=== PATIENT | female | born 1995 | race Caucasian/White ===

== ENCOUNTER 2017-07-07 03:36 | Emergency (ER) | payer BC, OTHER ==
[2017-07-07] MEDS ORDERED: NS 0.9% 1000 ML* 1,000 ML IV ONE ×2 (04:20→04:21)
[2017-07-07] MEDS ORDERED: DICYCLOMINE HCL* 20 MG/2 ML VIAL IM ONE (04:22)
[2017-07-07] MEDS ORDERED: Pantoprazole IV* 40 MG IV ONE ×2 (04:22→08:11)
[2017-07-07 04:57] LABS: ABS Basophils 0 10^3/ul (0-0.2); ABS Eosinophils 0 10^3/ul (0-0.6); ABS Lymphocytes 1.2 10^3/ul (1.0-4.8); ABS Monocytes 0.6 10^3/ul (0-0.8); ABS Neutrophils 6.4 10^3/ul (1.5-7.7); ABS Nucleated RBC 0 10^3/ul; Eosinophil % 0.3 % (0-6); Hematocrit 38 % (35-47); Hemoglobin 12.9 g/dl (12.0-16.0); Mean Corpuscular HGB Conc 34 g/dl (31-36); Mean Corpuscular Hemoglobin 29 pg (27-31); Mean Corpuscular Volume 84 fL (80-97); Mean Platelet Volume 11 um3 (7.4-10.4); Nucleated Red Blood Cells % 0; Platelet Count 217 10^3/ul (150-450); Red Blood Count 4.51 10^6/ul (4.0-5.4); Red Cell Distribution Width 13 % (10.5-15); White Blood Count 8.3 10^3/ul (3.5-10.8)
[2017-07-07 04:59] LABS: Urine Appearance Clear; Urine Blood Negative (Negative); Urine Color Straw; Urine Ketones Negative (Negative); Urine Protein Negative (Negative); Urine Specific Gravity 1.003 (1.010-1.030); Urine Urobilinogen Negative (Negative)
[2017-07-07 05:13] LABS: EGFR Non-African American 92.9 (>60)
--- NOTE | 2017-07-07 07:04 | ED ---
Nate Nassar Rebecca, scribed for Hector Quintanilla MD on 07/07/17 at 0415 . Complex/Multi-Sys Presentation - HPI Summary HPI Summary: Pt is a 21 y/o F who presents to ED c/o abdominal pain. Pain has been present for "a while," worsening 2 days ago. Pain is in the epigastric region with radiation down the R side of the abdomen and is currently moderate, ranked 7/ 10. Sx aggravated and alleviated by nothing. Additionally c/o subjective fever earlier tonight for which she took Advil. Denies V/D. LNMP about 6 weeks ago though the pt does not believe she is . No PSHx. - History Of Current Complaint Chief Complaint: EDFluSymptoms Time Seen by Provider: 07/07/17 03:51 Hx Obtained From: Patient Onset/Duration: Gradual Onset, Still Present Severity Currently: Severe Severity Initially: Mild Location: Pain At: - Epigastric Aggravating Factor(s): Nothing Alleviating Factor(s): Nothing Associated Signs And Symptoms: Positive: Abdominal Pain, Fever. Negative: Vomiting, Diarrhea - Allergies/Home Medications Allergies/Adverse Reactions: Allergies Allergy/AdvReac Type Severity Reaction Status Date / Time Penicillins Allergy Severe Anaphylatic Verified 07/07/17 03:43 Shock PMH/Surg Hx/FS Hx/Imm Hx Endocrine/Hematology History: Denies: Hx Diabetes, Hx Thyroid Disease Cardiovascular History: Denies: Hx Congestive Heart Failure, Hx Deep Vein Thrombosis, Hx Hypertension , Hx Myocardial Infarction, Hx Pacemaker/ICD Respiratory History: Reports: Hx Asthma Denies: Hx Chronic Obstructive Pulmonary Disease (COPD), Hx Lung Cancer GI History: Denies: Hx Ulcer History: Denies: Hx Renal Disease Neurological History: Denies: Hx Dementia, Hx Migraine, Hx Seizures, Hx Transient Ischemic Attacks (TIA), Other Neuro Impairments/Disorders Psychiatric History: Reports: Hx Anxiety Denies: Hx Eating Disorder, Hx of Violent Episodes Against Others Infectious Disease History: No Infectious Disease History: Denies: Hx Clostridium Difficile, Hx Hepatitis, Hx Human Immunodeficiency Virus (HIV), Hx of Known/Suspected MRSA, Hx Shingles, Hx Tuberculosis, Hx Known/ Suspected VRE, Hx Known/Suspected VRSA, History Other Infectious Disease, Traveled Outside the [place] in Last 30 Days - Family History Known Family History: Positive: Cardiac Disease, Hypertension - Social History Alcohol Use: Occasionally Substance Use Type: Reports: None Smoking Status (MU): Never Smoked Tobacco Review of Systems Positive: Fever Positive: Abdominal Pain. Negative: Vomiting, Diarrhea All Other Systems Reviewed And Are Negative: Yes Physical Exam - Summary Physical Exam Summary: ~ VITAL SIGNS: Reviewed. GENERAL: ~Patient is a well-developed and nourished female who is lying comfortable in the stretcher. Patient is not in any acute respiratory distress. HEAD AND FACE: No signs of trauma. No ecchymosis, hematomas or skull depressions. No sinus tenderness. EYES: PERRLA, EOMI x 2, No injected conjunctiva, no nystagmus. EARS: Hearing grossly intact. Ear canals and tympanic membranes are within normal limits. MOUTH: Oropharynx within normal limits. NECK: Supple, trachea is midline, no adenopathy, no JVD, no carotid bruit, no c- spine tenderness, neck with full ROM. CHEST: Symmetric, no tenderness at palpation LUNGS: Clear to auscultation bilaterally. No wheezing or crackles. CVS: Regular rate and rhythm, S1 and S2 present, no murmurs or gallops appreciated. ABDOMEN: Soft, non-tender. No signs of distention. No rebound no guarding, and no masses palpated. Bowel sounds are normal. EXTREMITIES: FROM in all major joints, no edema, no cyanosis or clubbing. NEURO: Alert and oriented x 3. No acute neurological deficits. Speech is normal and follows commands. SKIN: Dry and warm Triage Information Reviewed: Yes Vital Signs On Initial Exam: Initial Vitals Temp Pulse Resp BP Pulse Ox 98.4 F 91 16 143/71 99 07/07/17 03:39 07/07/17 03:39 07/07/17 03:39 07/07/17 03:39 07/07/17 03:39 Vital Signs Reviewed: Yes Diagnostics - Vital Signs Vital Signs Temp Pulse Resp BP Pulse Ox 07/07/17 03:39 98.4 F 91 16 143/71 99 - Laboratory Result Diagrams: 07/07/17 04:45 07/07/17 04:45 Lab Statement: Any lab studies that have been ordered have been reviewed, and results considered in the medical decision making process. Complex Multi-Symp Course/Dx Assessment/Plan: Pt is a 21 y/o F who presents to ED c/o abdominal pain. Pain has been present for "a while," worsening 2 days ago. Pain is in the epigastric region with radiation down the R side of the abdomen and is currently moderate, ranked 7/10. Additionally c/o subjective fever earlier tonight for which she took Advil. Denies V/D. LNMP about 6 weeks ago though the pt does not believe she is . No PSHx. In the ED course pt received Bentyl, Protonix and fluids. Bloodwork and UA were done. Pt will be signed out to Dr. Hardwick, pending dispo, awaiting CT Abd/Pel. Allergy noted. - Diagnoses Provider Diagnoses: Abdominal pain Discharge - Discharge Plan Condition: Stable Disposition: OTHER Discharge Disposition Comment: Pt will be signed out to Dr. Hardwick, pending dispo, awaiting CT Abd/Pel Referrals: No Primary Care Phys,NOPCP [Primary Care Provider] - The documentation as recorded by the Nate vela Rebecca accurately reflects the service I personally performed and the decisions made by me, Hector Quintanilla MD.
[2017-07-07] MEDS ORDERED: Iohexol 300* (CONTRAST) 10 ML SDV IV ONE (07:11)
--- NOTE | 2017-07-07 08:06 | RAD ---
INDICATION: Abdominal pain COMPARISON: None TECHNIQUE: Axial source images were obtained from the hemidiaphragms to the symphysis pubis following administration of oral and intravenous contrast. 100 mL Omnipaque 300 was utilized. Coronal and sagittal reconstructed images were acquired. Lung bases: The lung bases are clear. Liver: The liver is normal in size. There are no masses. There is no ductal dilatation. Gallbladder: There are no calcified gallstones. There is no evidence of wall thickening or pericholecystic fluid. Spleen: The spleen is normal in size. There are no masses. Pancreas: There is no focal pancreatic mass or ductal dilatation. Adrenal glands: There is no evidence of adrenal mass. Kidneys: The kidneys are normal in size and position. There are prompt nephrograms and there is prompt excretion bilaterally. There are no renal parenchymal masses. There is no evidence of nephrolithiasis. Adenopathy: There is no evidence of adenopathy by size criteria. Fluid collections: There are no free or localized fluid collections. Vessels:There are no significant atherosclerotic changes involving the aorta. There is no focal aneurysm. The iliac vessels are normal in caliber. The IVC appears normal. GI tract: The stomach and small bowel to the level of the terminal ileum appear normal. There is mural thickening of the terminal ileum. Minor mural thickening of the cecal tip. The remainder the colon to include the appendix is normal. Pelvic organs: The uterus and adnexa appear normal Bladder: There are no bladder masses. Abdominal and pelvic soft tissues: The extraperitoneal abdominal and pelvic soft tissues appear normal.. Osseous structures: There are no acute osseous findings. Other: None IMPRESSION: MURAL THICKENING OF THE TERMINAL ILEUM. CONSIDER ILEITIS/CROHN'S DISEASE
--- NOTE | 2017-07-07 09:12 | ED ---
IMargarito Jennifer, scribed for Dano Hardwick MD on 07/07/17 at 0808 . Progress - Progress Note Progress Note: The patient is a sign out from Dr. Quintanilla pending CT Abd/Pel. CT Abd/Pel. Interpreted by a radiologist. IMPRESSION: MURAL THICKENING OF THE TERMINAL ILEUM. CONSIDER ILEITIS/CROHN'S DISEASE. Dr. Hardwick has reviewed this report. Course/Dx - Course Course Of Treatment: DISCUSSED THE RESULTS WITH THE PATIENT AND HER MOTHER. WILL TREAT WITH FLAGYL AND BACTRIM FOR SMALL INTESTINE BACTERIAL OVERGROWTH. F/ U PMD/GI; GET REEVALUATED IF WORSE. - Diagnoses Provider Diagnoses: Abdominal pain The documentation as recorded by the Margarito vela Jennifer accurately reflects the service I personally performed and the decisions made by , Dano Hardwick MD.
[2017-07-07 09:14] VITALS: BP 134/71
== END 2017-07-07 09:11 | disposition home or self-care (01) ==
LOC: ED 03:36
DX: R10.9 Unspecified abdominal pain (principal); R50.9 Fever, unspecified
CPT/HCPCS: 36415; 74177; 80053; 81003; 82150; 83690; 84702; 85025; 86140; 96372; 96374; 99283; J0500; Q9967

== ENCOUNTER 2019-02-10 19:11 | Emergency (ER) | payer BC ==
[2019-02-10 19:29] VITALS: BP 144/80
--- NOTE | 2019-02-10 19:45 | UC ---
Abdominal Pain Female HPI - HPI Summary HPI Summary: 23 year old female with PMH + for stomach pains, underwent endoscopy today at [place]. Post-op, slept for 4 hours due to feeling tired. When awoke, + nausea with a small amount of emesis at 7. Since, continues to have nausea, but improving. no fever, no chills, no abdominal pains. + urination without difficulty. no other complaints, advised by GI to come get evaluated. - History of Current Complaint Chief Complaint: UCGI Stated Complaint: FEVER Time Seen by Provider: 02/10/19 19:19 Hx Obtained From: Patient Hx Last Menstrual Period: 01/12/19 ?: No Onset/Duration: Sudden Onset, Lasting Hours Severity Initially: Mild Severity Currently: Mild Pain Intensity: 2 Pain Scale Used: 0-10 Numeric Radiates: No Allergies/Adverse Reactions: Allergies Allergy/AdvReac Type Severity Reaction Status Date / Time Penicillins Allergy Severe Anaphylatic Verified 02/10/19 19:23 Shock Home Medications: Home Medications Lansoprazole [Prevacid] 40 mg DAILY 02/10/19 [History Confirmed 02/10/19] PMH/Surg Hx/FS Hx/Imm Hx Previously Healthy: Yes GI/ History: Gastroesophageal Reflux - Surgical History Surgical History: None - Family History Known Family History: Positive: Cardiac Disease, Hypertension, Non-Contributory - Social History Alcohol Use: Weekly Substance Use Type: None Smoking Status (MU): Never Smoked Tobacco Review of Systems All Other Systems Reviewed And Are Negative: Yes Constitutional: Negative: Fever, Chills, Fatigue Gastrointestinal: Positive: Vomiting, Nausea. Negative: Abdominal Pain, Diarrhea Psychological: Positive: Negative Is Patient Immunocompromised?: No Physical Exam Triage Information Reviewed: Yes Appearance: Well-Appearing, No Pain Distress, Well-Nourished Vital Signs: Initial Vital Signs Temp 98.8 F 02/10/19 19:24 Pulse 84 02/10/19 19:24 Resp 16 02/10/19 19:24 BP 144/80 02/10/19 19:24 Pulse Ox 98 02/10/19 19:24 Eyes: Positive: Conjunctiva Clear ENT: Positive: Hearing grossly normal Respiratory: Positive: Chest non-tender Abdomen Description: Positive: Nontender, No Organomegaly, Soft, Other: - no gaurding, no rebound, neg psoas, NABS x 4, no epigastric tenderness, no fluid wave.. Negative: Bruit, CVA Tenderness (R), CVA Tenderness (L), Distended, Guarding, Hernia @, Hepatomegaly, Peritoneal Signs, Splenomegaly Bowel Sounds: Positive: Present Musculoskeletal Exam: Normal Psychological Exam: Normal Abd Pain Female Course/Dx - Course Course Of Treatment: Likely reaction to Anesthesia from endoscopy. - Continue to drink water to flush system - GO IMMEDIATELY to ER with increased abdominal pains, fever, vomiting, lightheadedness - Start diet slowly with simple foods such as bananas, crackers. May progress as tolerated. - Differential Dx/Diagnosis Provider Diagnosis: Reaction, drug, adverse Discharge ED - Sign-Out/Discharge Documenting (check all that apply): Patient Departure All imaging exams completed and their final reports reviewed: No Studies - Discharge Plan Condition: Good Disposition: HOME Patient Education Materials: Acute Abdominal Pain (ED) Referrals: Karly Viverso MD [Primary Care Provider] - Additional Instructions: Likely reaction to Anesthesia from endoscopy. - Continue to drink water to flush system - GO IMMEDIATELY to ER with increased abdominal pains, fever, vomiting, lightheadedness - Start diet slowly with simple foods such as bananas, crackers. May progress as tolerated. - Billing Disposition and Condition Condition: GOOD Disposition: Home
== END 2019-02-10 19:56 | disposition home or self-care (01) ==
LOC: UCEAST 19:11
DX: R11.2 Nausea with vomiting, unspecified (principal); R50.9 Fever, unspecified; R10.9 Unspecified abdominal pain; R42 Dizziness and giddiness; R19.7 Diarrhea, unspecified; K21.9 Gastro-esophageal reflux disease without esophagitis; Z88.0 Allergy status to penicillin; Z79.899 Other long term (current) drug therapy; T50.905A Adverse effect of unspecified drugs, medicaments and biological substances, initial encounter; Y92.9 Unspecified place or not applicable
CPT/HCPCS: 99211; G0463

== ENCOUNTER 2019-03-27 07:41 | Emergency (ER) | payer BC ==
--- OUTSIDE RECORDS SUMMARY | 2019-03-27 07:45 | XMS REPORT | Summary of Care ---
:1995 Author Organization [facility] Address [address] [facility] [place] [address] Care Team Providers Name Role Phone None, [place] Primary Care Provider Unavailable Reason for Visit Reason Comments Follow-up New pt. here for follow-up to recent EGD. Encounter Details Date Type Department Care Team Description 02/28/2019 Office Visit [facility], Pain of upper abdomen (Primary Dx); Gastroenterology/Hep Sowmya Gentile NP Regurgitation of food atology 1 [facility] [address] [facility] [place] [address] [place] [address] Allergies Active Allergy Reactions Severity Noted Date Comments Amoxicillin Anaphylaxis 01/20/2019 Penicillins Anaphylaxis 01/20/2019 documented as of this encounter (statuses as of 02/28/2019) Medications Medication Sig Dispensed Refills Start Date End Date Status Levonorgestrel-Ethinyl Take by 0 Active Estrad (FALMINA) 0.1-20 mouth. MG-MCG Oral Tab pantoprazole (PROTONIX) 40 Take 1 Tab by 90 Tab 0 02/16/2019 Active MG Oral Tab ECIndications: mouth DAILY. Gastroesophageal reflux disease without esophagitis documented as of this encounter (statuses as of 02/28/2019) Active Problems No known active problemsdocumented as of this encounter (statuses as of 2018) Social History Tobacco Use Types Packs/Day Years Used Date Never Smoker 0 Smokeless Tobacco: Never Used Alcohol Use Drinks/Week oz/Week Comments Yes Sex Assigned at Date Recorded Not on file Job Start Date Occupation Industry Not on file Not on file Not on file Travel History Travel Start Travel End No recent travel history available. documented as of this encounter Last Filed Vital Signs Vital Sign Reading Time Taken Comments Blood Pressure 130/84 02/28/2019 7:51 AM EDT Pulse 66 02/28/2019 7:51 AM EDT Temperature 36.3 02/28/2019 7:51 AM EDT C (97.3 F) Respiratory Rate - - Oxygen Saturation - - Inhaled Oxygen Concentration - - Weight 98.9 kg (218 lb) 02/28/2019 7:51 AM EDT Height 167.6 cm (5' 6") 02/28/2019 7:51 AM EDT Body Mass Index 35.19 02/28/2019 7:51 AM EDT documented in this encounter Patient Instructions Patient InstructionsSowmya Grullon NP - 02/28/2019 7:40 AM EDT1. labwork can be drawn today 2. Schedule barium swallow xray at [place] 3. Avoid fatty, spicy foods and alcohol 4. Continue the Pantoprazole as directed 5. Follow up after the above Thank you for choosing the [facility] for your needs today! -Sowmya Grullon N.P. , Please call if you need to cancel or change your appt. time. Thank you for choosing [facility] for your health care needs, and for consulting with [facility] today. You may receive a survey following this visit, or after an upcoming hospital stay. As easy as it is to feel overloaded with surveys, we are required to send them out randomly and they do provide important feedback so that we may serve your needs in the best way. Please do take the few minutes required to complete the survey if you receive one. We get them too, after seeing the doctor, and they only take a few minutes to complete. Patient Education Irritable Bowel Syndrome Discharge Instructions About this topic Irritable bowel syndrome, or IBS, is a common long-term health problem of your belly. It does not cause swelling and does not lead to a more serious problem. The cause of IBS is not clear. There is no cure for IBS. Care focuses on how to control the signs. Signs may be mild to very bad. They can last for weeks or months. The main signs are: Belly pain Belly fullness Gassy feeling Bloating Upset stomach Loose or hard stools Loss of appetite What care is needed at home? Ask your doctor what you need to do when you go home. Make sure you ask questions if you do not understand what the doctor says. This way you will know what you need to do. Ask your doctor and learn how to cope with stress. This may include: Relaxation Doing an activity to relieve stress Counseling Joining a support group What follow-up care is needed? Your doctor may ask you to make visits to the office to check on your progress. Be sure to keep these visits. What drugs may be needed? The doctor may order drugs to: Help with pain Control belly muscle spasms Treat hard or loose stools and signs Fight an infection Be sure to take all drugs as ordered by your doctor. Will physical activity be limited? Physical activity may not be limited. You may be limited by your signs. They may keep you from goingto school or work and going to social events. Regular workouts can help improve your bowel function and other signs of IBS. What changes to diet are needed? Keep a diary of what you eat and how your body responds. This way you can figure out if anything you eat makes your signs better or worse. Talk to your doctor about it. Your doctor may suggest these changes. Be sure to pay attention to how your signs change with each one. ? Eat high-fiber foods like whole grains, fruits, and vegetables. ? Limit foods that can make you have gas. You may want to avoid onion, cabbage, Navarro sprouts, dried beans, lentils, broccoli, and cauliflower. ? Limit foods and drinks with artificial sweeteners. This includes foods with aspartame, sorbitol, and mannitol. ? Limit milk products such as milk, ice cream, and some yogurts. See if this changes your signs. ? Avoid drinks with caffeine, such as coffee and tea. Avoid beer, wine, and mixed drinks (alcohol). ? Avoid foods that make you feel worse. When do I need to call the doctor? Change in your bowel movements that does not go away Blood in your stool Throwing up and loose stools for more than 24 hours You are not feeling better in 2 to 3 days or you are feeling worse Teach Back: Helping You Understand The Teach Back Method helps you understand the information we are giving you. The idea is simple. After talking with the staff, tell them in your own words what you were just told. This helps to make sure the staff has covered each thing clearly. It also helps to explain things that may have been a bit confusing. Before going home, make sure you are able to do these: I can tell you about my condition. I can tell you how I will cope with stress. I can tell you what I will do if I have blood in my bowel movements or a change in my bowel movements that does not go away. Where can I learn more? [employer] [place] https://daa.asn.au/qgkug-qhdgyx-tfw-you/nkxxd-bwbcsx-afpu-facts/medical/a-guide- uc-aeaohdfks-acsii-syndrome/ International Foundation for Functional Gastrointestinal Disorders http://www.aboutibs.org/zlccv-rdy-pdnasqbb-main.html National Digestive Diseases Information Clearinghouse http://digestive.niddk.nih.gov/ddiseases/pubs/ibs/#help Last Reviewed Date 2016-11-26 Consumer Information Use and Disclaimer This information is not specific medical advice and does not replace information you receive from your health care provider. This is only a brief summary of general information. It does NOT include allinformation about conditions, illnesses, injuries, tests, procedures, treatments, therapies, discharge instructions or life-style choices that may apply to you. You must talk with your health care provider for complete information about your health and treatment options. This information should not beused to decide whether or not to accept your health care providers advice, instructions or recommendations. Only your health care provider has the knowledge and training to provide advice that isright for you. Copyright Copyright 2018 [employer]. and its affiliates and/or licensors. All rights reserved. documented in this encounter Progress Notes Sowmya Grullon NP - 02/28/2019 7:40 AM EDT PATIENT: Deangelo Ferraro : 1995 DATE OF SERVICE: 02/28/2019 REFERRING PRACTITIONER: Parul Elise PRIMARY CARE PROVIDER: None, [place] CHIEF COMPLAINT: Chief Complaint Patient presents with Follow-up New pt. here for follow-up to recent EGD. Subjective HISTORY OF PRESENT ILLNESS: Deangelo Ferraro is a 23-y.o. female who presents for a consultation. She reports abdominal pain, and intermittent regurgitation of foods. Pain quality: pressure, sharp and "tightening". Onset was problem is longstanding, this episode began several months ago. Symptoms have been intermittent. Aggravated by: stress. Alleviated by: Some improvement with proton pump inhibitors. Associated symptoms: bloating. Psychosocial factors: symptoms are clearly aggravated by stressful situations, however she feels her stress is well managed in recent months and she continues to have symptoms. The patient denies anemia, anorexia, arthralgias, chills, constipation, diarrhea , dysuria, fever, flatus, frequency, headache, hematochezia, hematemesis, hematuria, malnutrition, melena, myalgias, sweats and weight loss. 02/2019 EGD was unremarkable. Past Medical History: Diagnosis Date Asthma Migraines History reviewed. No pertinent surgical history. History reviewed. No pertinent family history. Current Outpatient Medications Medication Sig Levonorgestrel-Ethinyl Estrad (FALMINA) 0.1-20 MG-MCG Oral Tab Take by mouth. pantoprazole (PROTONIX) 40 MG Oral Tab EC Take 1 Tab by mouth DAILY. No current facility-administered medications for this visit. Allergies Allergen Reactions Amoxicillin Anaphylaxis Penicillins Anaphylaxis Social History Socioeconomic History Marital status: Single Spouse name: Not on file Number of children: Not on file Years of education: Not on file Highest education level: Not on file Occupational History Not on file Social Needs Financial resource strain: Not on file Food insecurity: Worry: Not on file Inability: Not on file Transportation needs: Medical: Not on file Non-medical: Not on file Tobacco Use Smoking status: Never Smoker Smokeless tobacco: Never Used Substance and Sexual Activity Alcohol use: Yes Drug use: Never Sexual activity: Yes Partners: Male control/protection: Pill Lifestyle Physical activity: Days per week: Not on file Minutes per session: Not on file Stress: Not on file Relationships Social connections: Talks on phone: Not on file Gets together: Not on file Attends baptism service: Not on file Active member of club or organization: Not on file Attends meetings of clubs or organizations: Not on file Relationship status: Not on file Intimate partner violence: Fear of current or ex partner: Not on file Emotionally abused: Not on file Physically abused: Not on file Forced sexual activity: Not on file Other Topics Concern Not on file Social History Narrative Not on file REVIEW OF SYSTEMS: All remaining review of systems was negative except for as noted in the history of present illness/subjective. Objective PHYSICAL EXAMINATION: VITALS: BP 130/84 | Pulse 66 | Temp 97.3 F (36.3 C) | Ht 5' 6" ( 1.676 m) | Wt 218 lb (98.9 kg) | BMI 35.19 kg/m Body mass index is 35.19 kg/m. GENERAL: alert, oriented, no acute distress. HEENT: No scleral icterus, MMM Psych: Affect normal Neck: no lymphadenopathy LUNGS: clear to auscultation bilaterally. HEART: regular rhythm, no murmurs, no gallops, no rubs. ABDOMEN: general exam: soft, diffusely-tender, non-distended, without masses or organomegaly, normal active bowel sounds, Yan's sign negative. Extrmities: no edema Skin: clear Neuro: gait normal, a&o x 3 RECTAL: exam deferred. Plan IMPRESSION/PLAN: ICD-9-CM ICD-10-CM 1. Pain of upper abdomen 789.09 R10.10 AMYLASE LIPASE LIVER FUNCTION PROFILE BASIC METABOLIC PANEL CBC WITH DIFFERENTIAL CELIAC DISEASE PANEL VITAMIN B12 / FOLATE VITAMIN D 25 HYDROXY (MCKEON) MAGNESIUM LEVEL XR ESOPHAGUS 2. Regurgitation of food 787.03 R11.10 XR ESOPHAGUS Likely a functional GI disorder. Patient Instructions 1. labwork can be drawn today 2. Schedule barium swallow xray at [place] 3. Avoid fatty, spicy foods and alcohol 4. Continue the Pantoprazole as directed 5. Follow up after the above Thank you for choosing the [facility] for your needs today! -Sowmya Grullon N.P. , Please call if you need to cancel or change your appt. time. Thank you for choosing [facility] for your health care needs, and for consulting with [facility] today. You may receive a survey following this visit, or after an upcoming hospital stay. As easy as it is to feel overloaded with surveys, we are required to send them out randomly and they do provide important feedback so that we may serve your needs in the best way. Please do take the few minutes required to complete the survey if you receive one. We get them too, after seeing the doctor, and they only take a few minutes to complete. Patient Education Irritable Bowel Syndrome Discharge Instructions About this topic Irritable bowel syndrome, or IBS, is a common long-term health problem of your belly. It does not cause swelling and does not lead to a more serious problem. The cause of IBS is not clear. There is no cure for IBS. Care focuses on how to control the signs. Signs may be mild to very bad. They can last for weeks or months. The main signs are: Belly pain Belly fullness Gassy feeling Bloating Upset stomach Loose or hard stools Loss of appetite What care is needed at home? Ask your doctor what you need to do when you go home. Make sure you ask questions if you do not understand what the doctor says. This way you will know what you need to do. Ask your doctor and learn how to cope with stress. This may include: Relaxation Doing an activity to relieve stress Counseling Joining a support group What follow-up care is needed? Your doctor may ask you to make visits to the office to check on your progress. Be sure to keep these visits. What drugs may be needed? The doctor may order drugs to: Help with pain Control belly muscle spasms Treat hard or loose stools and signs Fight an infection Be sure to take all drugs as ordered by your doctor. Will physical activity be limited? Physical activity may not be limited. You may be limited by your signs. They may keep you from goingto school or work and going to social events. Regular workouts can help improve your bowel function and other signs of IBS. What changes to diet are needed? Keep a diary of what you eat and how your body responds. This way you can figure out if anything you eat makes your signs better or worse. Talk to your doctor about it. Your doctor may suggest these changes. Be sure to pay attention to how your signs change with each one. ? Eat high-fiber foods like whole grains, fruits, and vegetables. ? Limit foods that can make you have gas. You may want to avoid onion, cabbage, [place] sprouts, dried beans, lentils, broccoli, and cauliflower. ? Limit foods and drinks with artificial sweeteners. This includes foods with aspartame, sorbitol, and mannitol. ? Limit milk products such as milk, ice cream, and some yogurts. See if this changes your signs. ? Avoid drinks with caffeine, such as coffee and tea. Avoid beer, wine, and mixed drinks (alcohol). ? Avoid foods that make you feel worse. When do I need to call the doctor? Change in your bowel movements that does not go away Blood in your stool Throwing up and loose stools for more than 24 hours You are not feeling better in 2 to 3 days or you are feeling worse Teach Back: Helping You Understand The Teach Back Method helps you understand the information we are giving you. The idea is simple. After talking with the staff, tell them in your own words what you were just told. This helps to make sure the staff has covered each thing clearly. It also helps to explain things that may have been a bit confusing. Before going home, make sure you are able to do these: I can tell you about my condition. I can tell you how I will cope with stress. I can tell you what I will do if I have blood in my bowel movements or a change in my bowel movements that does not go away. Where can I learn more? [employer] [place] https://daa.asn.au/hrxnm-kscbdj-fec-you/pzpoc-utmzfv-qixj-facts/medical/a-guide- hi-zvpxjhrbb-qjzpu-syndrome/ International Foundation for Functional Gastrointestinal Disorders http://www.aboutibs.org/yapat-cwr-kgrevgcy-main.html National Digestive Diseases Information Clearinghouse http://digestive.niddk.nih.gov/ddiseases/pubs/ibs/#help Last Reviewed Date 2016-11-26 Consumer Information Use and Disclaimer This information is not specific medical advice and does not replace information you receive from your health care provider. This is only a brief summary of general information. It does NOT include allinformation about conditions, illnesses, injuries, tests, procedures, treatments, therapies, discharge instructions or life-style choices that may apply to you. You must talk with your health care provider for complete information about your health and treatment options. This information should not beused to decide whether or not to accept your health care providers advice, instructions or recommendations. Only your health care provider has the knowledge and training to provide advice that isright for you. Copyright Copyright 2018 [employer], Inc. and its affiliates and/or licensors. All rights reserved. Author: Sowmya Grullon NP 02/28/2019 08:10 documented in this encounter Plan of Treatment Date Type Specialty Care Team Description 03/24/2019 Office Visit Gastroenterology Sowmya Grullon NP [address] [place] [address] [phone] Name Type Priority Associated Diagnoses Order Schedule AMYLASE Lab Routine Pain of upper abdomen Expected: 02/28/2019 (Approximate), Expires: 03/14/2019 LIPASE Lab Routine Pain of upper abdomen Expected: 02/28/2019 (Approximate), Expires: 03/14/2019 LIVER FUNCTION PROFILE Lab Routine Pain of upper abdomen Expected: 2018 (Approximate), Expires: 03/14/2019 BASIC METABOLIC PANEL Lab Routine Pain of upper abdomen Expected: 2018 (Approximate), Expires: 03/14/2019 CBC WITH DIFFERENTIAL Lab Routine Pain of upper abdomen Expected: 2018 (Approximate), Expires: 03/14/2019 CELIAC DISEASE PANEL Lab Routine Pain of upper abdomen Expected: 02/28/2019 (Approximate), Expires: 03/14/2019 VITAMIN B12 / FOLATE Lab Routine Pain of upper abdomen Expected: 02/28/2019 (Approximate), Expires: 03/14/2019 VITAMIN D 25 HYDROXY Lab Routine Pain of upper abdomen Expected: 02/28/2019 (MIKE) (Approximate), Expires: 04/30/2019 MAGNESIUM LEVEL Lab Routine Pain of upper abdomen Expected: 02/28/2019 (Approximate), Expires: 04/30/2019 XR ESOPHAGUS Imaging Routine Pain of upper abdomen Expected: Regurgitation of food 02/28/2019, Expires: 02/28/2020 Health Maintenance Due Date Last Done Comments PAP SMEAR 1995 DEPRESSION SCREENING 2005 HIV SCREENING 2008 HPV IMMUNIZATION SERIES (1 - Female 2008 3-dose series) INFLUENZA VACCINE (#1) 2019 MENINGOCOCCAL VACCINE IMM Aged Out No longer eligible based on patient's age to complete this topic PNEUMOCOCCAL 0-64 YRS Aged Out No longer eligible based on patient's age to complete this topic documented as of this encounter Results Not on filedocumented in this encounter Visit Diagnoses Diagnosis Pain of upper abdomen - Primary Abdominal pain, other specified site Regurgitation of food documented in this encounter Insurance Payer Benefit Plan / Subscriber ID Effective Dates Phone Address Type Group [facility]xxx [facility] t Cross/Blue Shield documented as of this encounter
--- OUTSIDE RECORDS SUMMARY | 2019-03-27 07:45 | XMS REPORT | Summary of Care ---
:1995 Author Organization [facility] Address [address] [facility] [place] [address] Care Team Providers Name Role Phone Anand Cross Primary Care Provider Reason for Visit Reason Comments Follow-up Follow-up to recent barium swallow at [facility]. Encounter Details Date Type Department Care Team Description 03/24/2019 Office Visit Ruthie Grullon Gastroesophageal reflux Gastroenterology/[place] NP disease without patology [address] [facility] esophagitis (Primary Dx) [address] [facility] [place] [address] [place] [address] Allergies Active Allergy Reactions Severity Noted Date Comments Amoxicillin Anaphylaxis 01/20/2019 Penicillins Anaphylaxis 01/20/2019 documented as of this encounter (statuses as of 03/24/2019) Medications Medication Sig Dispensed Refills Start Date End Date Status Levonorgestrel-Ethinyl Take by 0 Active Estrad (FALMINA) 0.1-20 mouth. MG-MCG Oral Tab pantoprazole (PROTONIX) 40 Take 1 Tab by 90 Tab 0 02/16/2019 Active MG Oral Tab ECIndications: mouth DAILY. Gastroesophageal reflux disease without esophagitis documented as of this encounter (statuses as of 03/24/2019) Active Problems No known active problemsdocumented as [...] Sign Reading Time Taken Comments Blood Pressure 126/82 03/24/2019 7:43 AM EST Pulse 72 03/24/2019 7:43 AM EST Temperature 36.6 03/24/2019 7:43 AM EST C (97.8 F) Respiratory Rate - - Oxygen Saturation - - Inhaled Oxygen Concentration - - Weight 98 kg (216 lb) 03/24/2019 7:43 AM EST Height 167.6 cm (5' 6") 03/24/2019 7:43 AM EST Body Mass Index 34.86 03/24/2019 7:43 AM EST documented in this encounter Patient Instructions Patient InstructionsSowmya Grullon NP - 03/24/2019 7:40 AM EST1. Continue to eat smaller meals throughout the day 2. Continue current medications 3. Follow up with here as needed or with any changes If you have not already been screened for Hepatitis C we would be happy to do that for you today. Currently we recommend screening for hepatitis C virus (HCV ) infection in persons at high risk for infection, and to adults born between 1945 and 1965. Thank you for choosing the [facility] for your needs today! -Sowmya Grullon N.P. , Please call if you need to cancel or change your appt. time. Thank you for choosing [facility] for your health care needs, and for consulting with [facility] today. You may receive a survey following [...] only take a few minutes to complete. documented in this encounter Progress Notes Sowmya Grullon NP - 03/24/2019 7:40 AM EST PATIENT: Deangelo Llaneselcarlos : 1995 DATE OF SERVICE: 03/24/2019 REFERRING PRACTITIONER: Sowmya Grullon PRIMARY CARE PROVIDER: Anand Cross CHIEF COMPLAINT: Chief Complaint Patient presents with Follow-up Follow-up to recent barium swallow at [facility]. Subjective HISTORY OF PRESENT ILLNESS: Deangelo Ferrrao is an 23-y.o. female who presents for a follow-up visit with gastroesophageal reflux. She reports doing well with PPI therapy. Did have some indigestion after eating pizza and brussel sprouts since out last visit. EGD and barium swallow exam were normal. She denies dysphagia, fatigue, nausea, vomiting, melena, hematemesis, hematochezia, constipation, diarrhea, jaundice, fevers, chills, night sweats, weight loss, easy bruising, chest pain, shortness of breath, dysuria, hematuria , pyuria, joint pains, acholic stools, dark urine or systemic pruritis. Current Outpatient Medications Medication Sig Levonorgestrel-Ethinyl Estrad (FALMINA) 0.1-20 MG-MCG Oral Tab Take by mouth. pantoprazole (PROTONIX) 40 MG Oral Tab EC Take 1 Tab by mouth DAILY. No current facility-administered medications for this visit. Allergies Allergen Reactions Amoxicillin Anaphylaxis Penicillins Anaphylaxis REVIEW OF SYSTEMS: All remaining review of systems was negative except for as noted in the history of present illness/subjective. Objective OBJECTIVE: VITALS: BP 126/82 | Pulse 72 | Temp 97.8 F (36.6 C) | Ht 5' 6" ( 1.676 m) | Wt 216 lb (98 kg) | BMI 34.86 kg/m Body mass index is 34.86 kg /m. GENERAL: alert, oriented, no acute distress. HEENT: No scleral icterus, MMM Psych: Affect normal Neck: no lymphadenopathy LUNGS: clear to auscultation bilaterally. HEART: regular rhythm, no murmurs, no gallops, no rubs. ABDOMEN: general exam: soft, non-tender, non-distended, without masses or organomegaly, normal active bowel sounds, Yan's sign negative. Extrmities: no edema Skin: clear Neuro: gait normal, a&o x 3 RECTAL: exam deferred. IMPRESSION: ICD-9-CM ICD-10-CM 1. Gastroesophageal reflux disease without esophagitis 530.81 K21.9 Advised that she taper to the lowest effective dose of acid dowel maker in the future. Plan PLAN: Patient Instructions 1. Continue to eat smaller meals throughout the day 2. Continue current medications 3. Follow up with here as needed or with any changes If you have not already been screened for Hepatitis C we would be happy to do that for you today. Currently we recommend screening for hepatitis C virus (HCV ) infection in persons at high risk for infection, and to adults born between 1945 and 1965. Thank you for choosing the [facility] for your needs today! -Sowmya Grullon N.P. , Please call if you need to cancel or change your appt. time. Thank you for choosing [facility] for your health care needs, and for consulting with [facility] today. You may receive a survey following [...] only take a few minutes to complete. Author: Sowmya Grullon NP 03/24/2019 08:08 documented in this encounter Plan of Treatment Health Maintenance Due Date Last Done Comments [...] filedocumented in this encounter Visit Diagnoses Diagnosis Gastroesophageal reflux disease without esophagitis - Primary Esophageal reflux documented in this encounter Insurance Payer Benefit Plan / Subscriber ID Effective Dates Phone Address Type Group [facility] xxxxxxxxxxxx 2018-[place] [employer] documented as of this encounter
[2019-03-27 07:50] VITALS: BP 130/83
--- NOTE | 2019-03-27 08:21 | UC ---
Throat Pain/Nasal Kishore HPI - HPI Summary HPI Summary: Pt c/o cold-sx for 1 week. Currently c/o sore throat, bilat ear pain, chest congestion, coughing, getting worse. - History of Current Complaint Chief Complaint: UCGeneralIllness Stated Complaint: URI Time Seen by Provider: 03/27/19 08:03 Hx Obtained From: Patient Hx Last Menstrual Period: 03/06/19 ?: No Onset/Duration: Sudden Onset, Lasting Days Severity: Moderate Pain Intensity: 6 - Allergies/Home Medications Allergies/Adverse Reactions: Allergies Allergy/AdvReac Type Severity Reaction Status Date / Time Penicillins Allergy Severe Anaphylatic Verified 03/27/19 07:45 Shock PMH/Surg Hx/FS Hx/Imm Hx Previously Healthy: Yes - Surgical History Surgical History: Yes Surgery Procedure, Year, and Place: endscopy 02/10/19 - Family History Known Family History: Positive: Cardiac Disease, Hypertension, Non-Contributory - Social History Alcohol Use: None Substance Use Type: None Smoking Status (MU): Never Smoked Tobacco Review of Systems All Other Systems Reviewed And Are Negative: Yes Constitutional: Positive: Fever, Chills, Fatigue ENT: Positive: Sore Throat, Ear Ache, Nasal Discharge Respiratory: Positive: Cough Is Patient Immunocompromised?: No Physical Exam Triage Information Reviewed: Yes Appearance: Well-Nourished, Ill-Appearing, Pain Distress Vital Signs: Initial Vital Signs Temp 98 F 03/27/19 07:45 Pulse 107 03/27/19 07:45 Resp 20 03/27/19 07:45 BP 130/83 03/27/19 07:45 Pulse Ox 100 03/27/19 07:45 Vital Signs Reviewed: Yes Eye Exam: Normal ENT: Positive: Pharyngeal erythema Dental Exam: Normal Neck exam: Normal Respiratory Exam: Normal Respiratory: Positive: Chest non-tender, Lungs clear, Normal breath sounds Cardiovascular Exam: Normal Abdominal Exam: Normal Bowel Sounds: Positive: Present Musculoskeletal Exam: Normal Neurological Exam: Normal Psychological Exam: Normal Skin Exam: Normal Throat Pain/Nasal Course/Dx - Course Course Of Treatment: hx obtained, exam performed, meds reviewed , rapid strep obtained. - Differential Dx/Diagnosis Differential Diagnosis/HQI/PQRI: Pharyngitis, Sinusitis, URI Provider Diagnosis: Sinusitis Discharge ED - Sign-Out/Discharge Documenting (check all that apply): Patient Departure All imaging exams completed and their final reports reviewed: No Studies - Discharge Plan Condition: Stable Disposition: HOME Patient Education Materials: Sinusitis (ED) Referrals: Anand Cross MD [Primary Care Provider] - Additional Instructions: 1. Take the medication as prescribed. 2. Increase the fluid intake and get plenty of rest. 3. COntinue with ibuprofen and tylenol as needed. - Billing Disposition and Condition Condition: STABLE Disposition: Home
== END 2019-03-27 08:30 | disposition home or self-care (01) ==
LOC: UCEAST 07:41
DX: J32.9 Chronic sinusitis, unspecified (principal); R53.83 Other fatigue; J02.9 Acute pharyngitis, unspecified; R68.83 Chills (without fever); H92.03 Otalgia, bilateral; Z88.0 Allergy status to penicillin
CPT/HCPCS: 87651; 99212; G0463

== ENCOUNTER 2023-02-19 15:36 | Inpatient (IN) ==
[2023-02-19] MEDS ORDERED: Buffered Lidocaine 1% SYRIN 1 ml INTRADERM ONE (16:13)
[2023-02-19 17:12] LABS: Albumin 3.4 g/dL (3.2-5.2); Calcium 9.2 mg/dL (8.6-10.3); Potassium 3.9 mmol/L (3.5-5.0); Total Bilirubin 0.2 mg/dL (0.2-1.0)
[2023-02-19 17:18] LABS: ABS Eosinophils 0.1 10^3/uL (0.0-0.5); ABS Lymphocytes 1.8 10^3/uL (1.0-4.8); ABS Monocytes 0.6 10^3/uL (0.0-0.9); ABS Neutrophils 7.4 10^3/uL (1.5-7.6); ABS Nucleated RBC 0.01 10^3/ul; Albumin/Globulin Ratio 1.1 (1-3); Creatinine, Serum 0.43 mg/dL (0.51-0.95); Eosinophil % 0.6 %; Globulin 3.1 g/dL (2-4); Hematocrit 31.2 % (35-45); Hemoglobin 10.9 g/dL (11.5-14.3); Lymphocyte % 18.4 %; Mean Corpuscular Hgb Conc 34.8 g/dL (31-36); Mean Corpuscular Volume 83.2 fL (80-97); Mean Platelet Volume 11.9 fL (7.5-11.2); Nucleated Red Blood Cells % 0.1 %/100WBC (0.0-0.8); Platelet Count 176 10^3/uL (150-450); Red Blood Count 3.75 10^6/uL (3.63-4.92); Red Cell Distribution Width 13.3 % (12-17); Total Protein 6.5 g/dL (6.4-8.9); White Blood Count 9.9 10^3/uL (3.8-11.8); eGFR CKD-EPI 134.9 (>60)
[2023-02-19 17:36] LABS: Urine TP Concentration < 5 mg/dL
[2023-02-19 17:41] LABS: Urine Creatinine Concentration 16.38 mg/dL (20.00-320.00)
[2023-02-19] MEDS ORDERED: Lactated Ringers 1000 ml BAG 1,000 ML IV ONE (18:01)
[2023-02-19] MEDS ORDERED: Lidocaine 1% VIAL 10 MG/ML 30 ML VIAL INJ PRN (18:01)
[2023-02-19] MEDS ORDERED: Dinoprostone 10 MG VAG.SUPP VAGINAL ONE (18:06)
[2023-02-19 19:33] LABS: Urine Benzodiazepine Screen None Detected (None Detect); Urine Cannabinoids Screen None Detected (None Detect); Urine Opiates Screen None Detected (None Detect)
[2023-02-19] MEDS: [UNRECOGNIZED DRUG - OTHER] PO SCH (22:22)
[2023-02-19] MEDS: DOXYLAMINE PO SCH (22:22)
[2023-02-19] MEDS: PYRIDOXINE PO SCH (22:22)
[2023-02-20] MEDS: Calcium Carb (TUMS) 500 mg CHEW TAB PO PRN ×2 (02:38→17:28)
[2023-02-20] MEDS: Lactated Ringers 1000 ml BAG 1,000 ML IV SCH (08:28)
[2023-02-20] MEDS: Ondansetron 4 mg VIAL 2 MG/ML 2 ml VIAL IV PRN ×3 (08:33→20:16)
[2023-02-20] MEDS: [UNRECOGNIZED DRUG - OTHER] PO SCH ×2 (09:08→22:05)
[2023-02-20] MEDS: DOXYLAMINE PO SCH ×2 (09:08→22:05)
[2023-02-20] MEDS: PYRIDOXINE PO SCH ×2 (09:08→22:05)
[2023-02-20] MEDS ORDERED: miSOPROStol 100 mcg TAB PO ONE ×2 (12:15→17:09)
[2023-02-20 19:47] LABS: Hematocrit 29.1 % (35-45); Hemoglobin 10.3 g/dL (11.5-14.3); Mean Corpuscular Hemoglobin 29.8 pg (27-33); Mean Corpuscular Hgb Conc 35.5 g/dL (31-36); Mean Corpuscular Volume 83.8 fL (80-97); Mean Platelet Volume 11.3 fL (7.5-11.2); Platelet Count 155 10^3/uL (150-450); Red Blood Count 3.48 10^6/uL (3.63-4.92); Red Cell Distribution Width 13.3 % (12-17); White Blood Count 10.1 10^3/uL (3.8-11.8)
[2023-02-20 20:08] LABS: Albumin 3.4 g/dL (3.2-5.2); Calcium 9.6 mg/dL (8.6-10.3); Potassium 3.9 mmol/L (3.5-5.0); Total Bilirubin 0.3 mg/dL (0.2-1.0)
[2023-02-20 20:14] LABS: Albumin/Globulin Ratio 1.2 (1-3); Creatinine, Serum 0.5 mg/dL (0.51-0.95); Globulin 2.8 g/dL (2-4); Total Protein 6.2 g/dL (6.4-8.9); eGFR CKD-EPI 130.1 (>60)
[2023-02-20] MEDS ORDERED: Dinoprostone 10 MG VAG.SUPP VAGINAL ONE (21:23)
[2023-02-21] MEDS: Calcium Carb (TUMS) 500 mg CHEW TAB PO PRN ×3 (00:22→20:25)
[2023-02-21] MEDS ORDERED: Influenza vaccine *QUAD* *2023-24* 0.5 ML SYRINGE IM ONE (09:00)
[2023-02-21 09:21] LABS: Hematocrit 32.8 % (35-45); Hemoglobin 11.4 g/dL (11.5-14.3); Mean Corpuscular Hemoglobin 29.1 pg (27-33); Mean Corpuscular Hgb Conc 34.9 g/dL (31-36); Mean Corpuscular Volume 83.6 fL (80-97); Red Blood Count 3.92 10^6/uL (3.63-4.92); Red Cell Distribution Width 13.3 % (12-17); White Blood Count 9.8 10^3/uL (3.8-11.8)
[2023-02-21 09:38] LABS: Albumin 3.3 g/dL (3.2-5.2); Calcium 9.1 mg/dL (8.6-10.3); Potassium 3.8 mmol/L (3.5-5.0); Total Bilirubin 0.4 mg/dL (0.2-1.0)
[2023-02-21 09:44] LABS: Albumin/Globulin Ratio 1.1 (1-3); Creatinine, Serum 0.52 mg/dL (0.51-0.95); Globulin 3.1 g/dL (2-4); Total Protein 6.4 g/dL (6.4-8.9); eGFR CKD-EPI 128.9 (>60)
[2023-02-21] MEDS: DOXYLAMINE PO SCH ×2 (09:50→20:58)
[2023-02-21] MEDS: [UNRECOGNIZED DRUG - OTHER] PO SCH ×2 (09:50→20:58)
[2023-02-21] MEDS: PYRIDOXINE PO SCH ×2 (09:50→20:58)
[2023-02-21 09:57] LABS: ABS Eosinophils 0.1 10^3/uL (0.0-0.5); ABS Lymphocytes 1.7 10^3/uL (1.0-4.8); ABS Monocytes 0.5 10^3/uL (0.0-0.9); ABS Neutrophils 7.5 10^3/uL (1.5-7.6); ABS Nucleated RBC 0.02 10^3/ul; Eosinophil % 1.2 %; Large Platelets Present; Lymphocyte % 17.2 %; Mean Platelet Volume 12.1 fL (7.5-11.2); Nucleated Red Blood Cells % 0.2 %/100WBC (0.0-0.8); Platelet Count 172 10^3/uL (150-450)
[2023-02-21] MEDS ORDERED: miSOPROStol 100 mcg TAB PO ONE ×2 (10:32→15:18)
[2023-02-21] MEDS: Ondansetron 4 mg VIAL 2 MG/ML 2 ml VIAL IV PRN ×2 (18:40→22:16)
[2023-02-21] MEDS ORDERED: Oxytocin in LR 20,000 MILLI.UNIT/1,000 ML BAG IV SCH (20:30)
[2023-02-21 20:45] LABS: ABS Eosinophils 0.1 10^3/uL (0.0-0.5); ABS Lymphocytes 2.2 10^3/uL (1.0-4.8); ABS Monocytes 0.6 10^3/uL (0.0-0.9); ABS Neutrophils 6.8 10^3/uL (1.5-7.6); Eosinophil % 1.3 %; Hematocrit 30.3 % (35-45); Hemoglobin 10.5 g/dL (11.5-14.3); Lymphocyte % 22.7 %; Mean Corpuscular Hemoglobin 29.1 pg (27-33); Mean Corpuscular Hgb Conc 34.5 g/dL (31-36); Mean Corpuscular Volume 84.4 fL (80-97); Mean Platelet Volume 12.1 fL (7.5-11.2); Platelet Count 173 10^3/uL (150-450); Red Cell Distribution Width 13.1 % (12-17); White Blood Count 9.9 10^3/uL (3.8-11.8)
[2023-02-21 21:03] LABS: Albumin 3.2 g/dL (3.2-5.2); Calcium 9.4 mg/dL (8.6-10.3); Potassium 3.8 mmol/L (3.5-5.0); Total Bilirubin 0.4 mg/dL (0.2-1.0)
[2023-02-21 21:09] LABS: Albumin/Globulin Ratio 1.1 (1-3); Creatinine, Serum 0.49 mg/dL (0.51-0.95); Globulin 2.9 g/dL (2-4); Total Protein 6.1 g/dL (6.4-8.9); eGFR CKD-EPI 130.8 (>60)
[2023-02-21] MEDS: Lactated Ringers 1000 ml BAG 1,000 ML IV SCH (22:12)
[2023-02-21] MEDS ORDERED: Promethazine INJ(RESTRICTED) 25 MG/ML 1 ml VIAL IV PRN (23:46)
[2023-02-21] MEDS ORDERED: Morphine 10 MG/ML VIAL (1 ml) IV ONE (23:47)
[2023-02-22] MEDS: Calcium Carb (TUMS) 500 mg CHEW TAB PO PRN (06:01)
[2023-02-22] MEDS: Ondansetron 4 mg VIAL 2 MG/ML 2 ml VIAL IV PRN ×3 (06:01→18:22)
[2023-02-22] MEDS: Lactated Ringers 1000 ml BAG 1,000 ML IV SCH ×2 (06:15→09:47)
[2023-02-22] MEDS ORDERED: Oxytocin in LR 20,000 MILLI.UNIT/1,000 ML BAG IV SCH ×2 (07:20→22:05)
[2023-02-22] MEDS ORDERED: Lidocaine 1.5% EPI 1:200,000 30 ML SDV ONE (07:49)
[2023-02-22] MEDS ORDERED: OBEPIDURAL (200 ML) 200 ML EPIDURAL ONE (07:49)
[2023-02-22 08:09] LABS: Albumin 3.4 g/dL (3.2-5.2); Calcium 8.9 mg/dL (8.6-10.3); Potassium 3.7 mmol/L (3.5-5.0); Total Bilirubin 0.4 mg/dL (0.2-1.0)
[2023-02-22 08:14] LABS: ABS Eosinophils 0.1 10^3/uL (0.0-0.5); ABS Lymphocytes 1.6 10^3/uL (1.0-4.8); ABS Monocytes 0.8 10^3/uL (0.0-0.9); ABS Neutrophils 12.9 10^3/uL (1.5-7.6); Eosinophil % 0.5 %; Hematocrit 32.3 % (35-45); Hemoglobin 11.1 g/dL (11.5-14.3); Large Platelets Present; Lymphocyte % 10.2 %; Mean Corpuscular Hemoglobin 28.9 pg (27-33); Mean Corpuscular Hgb Conc 34.4 g/dL (31-36); Mean Platelet Volume 12.1 fL (7.5-11.2); Platelet Count 170 10^3/uL (150-450); Red Blood Count 3.85 10^6/uL (3.63-4.92); Red Cell Distribution Width 13.3 % (12-17); White Blood Count 15.3 10^3/uL (3.8-11.8)
[2023-02-22 08:15] LABS: Albumin/Globulin Ratio 1.1 (1-3); Creatinine, Serum 0.48 mg/dL (0.51-0.95); Total Protein 6.4 g/dL (6.4-8.9); eGFR CKD-EPI 131.4 (>60)
[2023-02-22] MEDS ORDERED: Sodium Citrate/Citric Acid LIQ 15 ML UDC PO PRN (09:13)
[2023-02-22] MEDS ORDERED: Lactated Ringers 1000 ml BAG 1,000 ML IV ONE (09:13)
[2023-02-22] MEDS ORDERED: Phenylephrine 40 mcg/mL 10mL (400mcg) SYRINGE IV PUSH PRN (09:13)
[2023-02-22] MEDS ORDERED: Lactated Ringers 1000 ml BAG 500 ML IV PRN ×2 (09:13)
[2023-02-22] MEDS: Phenylephrine 40 mcg/mL 10mL (400mcg) SYRINGE IV PUSH PRN ×3 (09:14→10:21)
[2023-02-22] MEDS ORDERED: OBEPIDURAL (200 ML) 200 ML EPIDURAL SCH (10:00)
[2023-02-22] MEDS ORDERED: Lactated Ringers 1000 ml BAG 1,000 ML IV SCH ×2 (10:00→23:00)
[2023-02-22 10:39] LABS: Urine Appearance Cloudy; Urine Bilirubin Negative (Negative); Urine Blood Negative (Negative); Urine Color Amber; Urine Glucose Negative (Negative); Urine Ketones 2+ (Negative); Urine Nitrite Negative (Negative); Urine Protein 1+(30 mg/dL) (Negative); Urine Specific Gravity 1.021 (1.002-1.030); Urine Urobilinogen Negative (Negative)
[2023-02-22] MEDS: PYRIDOXINE PO SCH ×2 (10:42→20:44)
[2023-02-22] MEDS: [UNRECOGNIZED DRUG - OTHER] PO SCH ×2 (10:42→20:44)
[2023-02-22] MEDS: DOXYLAMINE PO SCH ×2 (10:42→20:44)
[2023-02-22 11:13] LABS: Urine Bacteria Absent (Absent); Urine Red Blood Cell Absent (Absent); Urine Squamous Epithelial Cell Present (Absent); Urine White Blood Cell Absent (Absent)
[2023-02-22] MEDS ORDERED: Vancomycin 1,000 MG in NS 0.9% 250 ml 250 ML IVPB SCH (14:00)
[2023-02-22] MEDS ORDERED: Lidocaine 2% PF 5 ML VIAL ONE (20:38)
[2023-02-22] MEDS ORDERED: Bupivacaine 0.25% SDV PF 10 ML VIAL INJ ONE (20:38)
[2023-02-22] MEDS ORDERED: Witch Hazel PAD JAR TOPICAL PRN (22:02)
[2023-02-22] MEDS ORDERED: Dibucaine 1% OINT 28.35 GM TUBE PR PRN (22:02)
[2023-02-23] MEDS ORDERED: Phenylephrine 40 mcg/mL 10mL (400mcg) SYRINGE ONE (01:10)
[2023-02-23 07:35] LABS: ABS Monocytes 1.1 10^3/uL (0.0-0.9); ABS Neutrophils 15.9 10^3/uL (1.5-7.6); ABS Nucleated RBC 0.01 10^3/ul; Eosinophil % 0.2 %; Hematocrit 27.3 % (35-45); Hemoglobin 9.5 g/dL (11.5-14.3); Lymphocyte % 10.6 %; Mean Corpuscular Hemoglobin 29.2 pg (27-33); Mean Corpuscular Hgb Conc 34.9 g/dL (31-36); Mean Corpuscular Volume 83.8 fL (80-97); Mean Platelet Volume 11.9 fL (7.5-11.2); Platelet Count 139 10^3/uL (150-450); Red Blood Count 3.25 10^6/uL (3.63-4.92); Red Cell Distribution Width 13.2 % (12-17)
[2023-02-23] MEDS: [UNRECOGNIZED DRUG - OTHER] PO SCH ×2 (07:58→21:14)
[2023-02-23] MEDS: PYRIDOXINE PO SCH ×2 (07:58→21:14)
[2023-02-23] MEDS: DOXYLAMINE PO SCH ×2 (07:58→21:14)
[2023-02-24] MEDS: PYRIDOXINE PO SCH ×2 (09:11→21:29)
[2023-02-24] MEDS: [UNRECOGNIZED DRUG - OTHER] PO SCH ×2 (09:11→21:29)
[2023-02-24] MEDS: DOXYLAMINE PO SCH ×2 (09:11→21:29)
[2023-02-25 08:37] VITALS: BP 141/82
[2023-02-25] MEDS: [UNRECOGNIZED DRUG - OTHER] PO SCH (09:14)
[2023-02-25] MEDS: PYRIDOXINE PO SCH (09:14)
[2023-02-25] MEDS: DOXYLAMINE PO SCH (09:14)
== END 2023-02-25 13:45 | disposition home or self-care (01) | DRG 542 ==
LOC: MCHOBOUT 15:36 → MCHOB 18:07
PROVIDERS: ADMIT Midwife; ATTEND Midwife